=== PATIENT | male | born 1985 | race American Indian/Alaskan Native ===

== ENCOUNTER 2018-03-20 01:22 | Emergency (ER) | payer OTHER ==
[2018-03-20 01:29] VITALS: BP 126/78
[2018-03-20 02:27] LABS: Bilirubin,Urine NEG (Negative); Blood,Urine NEG (Negative); Color,Urine Yellow (Yellow); Mucus,Urine FEW /HPF; Protein,Urine <15 mg/dL mg/dL (Negative); Urobilinogen,Urine < 2.0 mg/dL (<2.0)
[2018-03-20 02:29] LABS: RBC,Urine < 1.0 /HPF (0.0-6.0)
--- NOTE | 2018-03-20 03:20 | Ultrasound Report ---
FINAL REPORT PROCEDURE: US TESTICULAR DOPPLER COMP TECHNIQUE: Real-time talamantes-scale and color flow Doppler sonography in multiple planes of the scrotum, testicles, and epididymes was performed. Velocity spectral waveform analysis Doppler imaging of the arterial inflow and venous outflow of the testicles was performed with image documentation. CPT 34262 and [address]58 HISTORY: left groin and testicle pain COMPARISON: No prior studies are available for comparison. FINDINGS: RIGHT TESTICLE: Size: 4.8 x 2.3 x 3.1 cm . Appearance: Normal size and echotexture . Arterial blood flow: Normal spectral waveforms, flow velocities and color flow images.. Venous blood flow: Normal spectral waveforms and color flow images. Right epididymis: Normal size and echotexture . Hydrocele: None . LEFT TESTICLE Size: 4.5 x 1.7 x 3 cm . Appearance: Normal size and echotexture . Arterial blood flow: Normal spectral waveforms, flow velocities and color flow images.. Venous blood flow: Normal spectral waveforms and color flow images. Leftepididymis: Normal size and echotexture . Hydrocele: None . There is some slight increased echogenicity in the lateral aspect of the scrotal sac. This may represent small area of inflammatory change. No fluid collection is seen. IMPRESSION: Both testicles have a normal size with appropriate blood flow. There is slight increased echogenicity in the lateral aspect of the scrotal sac which may represent a small area of inflammatory change. No fluid collection is identified.
[2018-03-20 03:30] LABS: Red Blood Count 4.32 M/mm3 (3.65-5.03)
[2018-03-20 03:31] LABS: Basophils % (Auto) 0.3 % (0.0-1.8); Eosinophils # (Auto) 0.4 K/mm3 (0.0-0.4); Hematocrit 40.5 % (35.5-45.6); Hemoglobin 13.6 gm/dl (11.8-15.2); Lymphocytes # (Auto) 2.8 K/mm3 (1.2-5.4); Lymphocytes % (Auto) 38.2 % (13.4-35.0); Mean Corpuscular HGB Conc 34 % (32-34); Mean Corpuscular Hemoglobin 32 pg (28-32); Mean Corpuscular Volume 94 fl (84-94); Monocytes # (Auto) 0.5 K/mm3 (0.0-0.8); Monocytes % (Auto) 7.3 % (0.0-7.3); Platelet Count 187 K/mm3 (140-440); Red Cell Distribution Width 14.2 % (13.2-15.2)
[2018-03-20 03:35] LABS: BUN/Creatinine Ratio 19; Blood Urea Nitrogen 19 mg/dL (9-20); Calcium 9.2 mg/dL (8.4-10.2); Hemolysis Index 36
[2018-03-20] MEDS ORDERED: MOTRIN ONE (05:34)
[2018-03-20] MEDS ORDERED: MOTRIN PO ONE (05:35)
[2018-03-20] MEDS ORDERED: ROCEPHIN IM ONE (05:44)
[2018-03-20] MEDS ORDERED: ZITHROMAX PO ONE (05:44)
[2018-03-20] MEDS ORDERED: XYLOCAINE 1% MPF 5 mL INFILTRATI ONE (05:44)
--- NOTE | 2018-03-20 05:45 | Emergency Department Report ---
ED Male HPI - General Chief complaint: Urogenital-Male Stated complaint: GROIN PAIN AND SWELLING Time Seen by Provider: 03/20/18 05:38 Source: patient Mode of arrival: Ambulatory Limitations: No Limitations - History of Present Illness Initial comments: 32-year-old -Martiniquais male comes in complaining of left testicular pain and swelling with left groin area pain. Patient reports that this started on Tuesday about 1700. Patient denies any dysuria no penile discharge he reports is sexually active. Women 2 partners and unprotected. Patient has taken no pain medication. Has a past medical history of allergies he was taken Rain. Has no known drug allergies. Denies any fever chills or nausea or vomiting. MD Complaint: testicle pain, testicle swelling, groin pain -: days(s) (1) Location: left testicle, left inguinal region Radiation: none Severity scale (0 -10): 10 Quality: aching, stabbing Consistency: constant Improves with: none Worsens with: palpation, movement denies other symptoms, swelling (testicle). denies: discharge, urinary retention, blood in urine, dysuria - Related Data Sexually active: Yes (to partner unprotected last 6 months) Previous Rx's Medication Instructions Recorded Last Taken Type Ibuprofen [Motrin 800 MG tab] 800 mg PO Q8HR PRN #30 tablet 03/20/18 Unknown Rx traMADol [Ultram 50 MG tab] 50 mg PO Q6HR PRN #15 tablet 03/20/18 Unknown Rx Allergies Allergy/AdvReac Type Severity Reaction Status Date / Time No Known Allergies Allergy Verified 03/20/18 05:39 ED Review of Systems ROS: Stated complaint: GROIN PAIN AND SWELLING Other details as noted in HPI Constitutional: denies: chills, fever Eyes: denies: eye pain, eye discharge, vision change ENT: denies: ear pain, throat pain Respiratory: denies: cough, shortness of breath, wheezing Cardiovascular: denies: chest pain, palpitations Endocrine: no symptoms reported Gastrointestinal: denies: abdominal pain, nausea, diarrhea Genitourinary: testicular pain, other (testicular swelling) Musculoskeletal: denies: back pain, joint swelling, arthralgia Skin: denies: rash, lesions Neurological: denies: headache, weakness, paresthesias Psychiatric: denies: anxiety, depression Hematological/Lymphatic: denies: easy bleeding, easy bruising ED Past Medical Hx - Past Medical History Previous Medical History?: No - Surgical History Past Surgical History?: Yes - Social History Smoking Status: Current Some Day Smoker Substance Use Type: None - Medications Home Medications: Home Medications Medication Instructions Recorded Confirmed Last Taken Type Ibuprofen [Motrin 800 MG tab] 800 mg PO Q8HR PRN #30 tablet 03/20/18 Unknown Rx traMADol [Ultram 50 MG tab] 50 mg PO Q6HR PRN #15 tablet 03/20/18 Unknown Rx ED Physical Exam - General Limitations: No Limitations General appearance: alert, in no apparent distress - Head Head exam: Present: atraumatic, normocephalic - Eye Eye exam: Present: normal appearance - ENT ENT exam: Present: mucous membranes moist - Neck Neck exam: Present: normal inspection - Respiratory Respiratory exam: Present: normal lung sounds bilaterally. Absent: respiratory distress - Cardiovascular Cardiovascular Exam: Present: regular rate, normal rhythm. Absent: systolic murmur, diastolic murmur, rubs, gallop - exam: Present: testicular tenderness (left testicle), scrotal swelling ( testicle), circumcision. Absent: urethral discharge - Extremities Exam Extremities exam: Present: normal inspection - Back Exam Back exam: Present: normal inspection - Neurological Exam Neurological exam: Present: alert, oriented X3 - Psychiatric Psychiatric exam: Present: normal affect, normal mood - Skin Skin exam: Present: warm, dry, intact, normal color. Absent: rash ED Course Vital Signs 03/20/18 03/20/18 01:22 01:38 Temperature 98.3 F 98.3 F Pulse Rate 93 H 93 H Respiratory 20 18 Rate Blood Pressure 126/78 126/78 O2 Sat by Pulse 96 96 Oximetry ED Medical Decision Making - Lab Data Result diagrams: 03/20/18 03:03 03/20/18 03:03 - Radiology Data Radiology results: report reviewed, image reviewed HISTORY: left groin and testicle pain COMPARISON: No prior studies are available for comparison. FINDINGS: RIGHT TESTICLE: Size: 4.8 x 2.3 x 3.1 cm . Appearance: Normal size and echotexture . Arterial blood flow: Normal spectral waveforms, flow velocities and color flow images.. Venous blood flow: Normal spectral waveforms and color flow images. Right epididymis: Normal size and echotexture . Hydrocele: None . LEFT TESTICLE Size: 4.5 x 1.7 x 3 cm . Appearance: Normal size and echotexture . Arterial blood flow: Normal spectral waveforms, flow velocities and color flow images.. Venous blood flow: Normal spectral waveforms and color flow images. Leftepididymis: Normal size and echotexture . Hydrocele: None . There is some slight increased echogenicity in the lateral aspect of the scrotal sac. This may represent small area of inflammatory change. No fluid collection is seen. IMPRESSION: Both testicles have a normal size with appropriate blood flow. There is slight increased echogenicity in the lateral aspect of the scrotal sac which may represent a small area of inflammatory change. No fluid collection is identified. Transcribed By: [facility] Dictated By: ADDISON DERAS MD Electronically Authenticated By: ADDISON DERAS MD Signed Date/Time: 03/20/18314 DD/ 4 TD/TT: 03/20/18314 - Medical Decision Making Patient has been evaluated by this provider fast track. Review of ultrasound shows no testicular torsion. Does show some inflammatory of the left testicular with echogenic changes. Discussed the patient will treat him for epididymitis is under the age of 35. Treatment consisted of Rocephin 250 mg IM [place] azithromycin 1 g by mouth. We will order chlamydia and gonorrhea studies. Place patient in ibuprofen for discharge we will give patient ibuprofen 800 mg one his stay. Discussed the patient to wear underwear that are tight fit in to help bring up the testicles. Discussed the patient is symptoms persist or gets worse he needs to follow up with urologist. Patient verbalized understanding. Critical care attestation.: If time is entered above; I have spent that time in minutes in the direct care of this critically ill patient, excluding procedure time. ED Disposition Clinical Impression: Epididymitis Disposition: DC-01 TO HOME OR SELFCARE Is pt being admited?: No Does the pt Need Aspirin: No Condition: Stable Instructions: Epididymitis (ED) Additional Instructions: Please take ibuprofen and trauma and all for pain. Recommend wearing either a scrotal support underwear that is tight. If symptoms persist or gets worse please follow-up with the urologist or your primary care provider. Prescriptions: Ibuprofen [Motrin 800 MG tab] 800 mg PO Q8HR PRN #30 tablet PRN Reason: Pain traMADol [Ultram 50 MG tab] 50 mg PO Q6HR PRN #15 tablet PRN Reason: Pain Referrals: PRIMARY CARE, [Primary Care Provider] - 3-5 Days JEANETTE HERNANDEZ MD [Staff Physician] - 3-5 Days RM SPRING MD [Staff Physician] - 3-5 Days Forms: STI Treatment and Prevention, Work/School Release Form(ED)
[2018-03-20] MEDS ORDERED: BENADRYL ONE (06:22)
[2018-03-20] MEDS ORDERED: BENADRYL IM ONE (06:23)
--- NOTE | 2018-03-20 07:00 | Emergency Department Report ---
Blank Doc - Documentation Documentation: Student Ambassador Dom reports to me that patient has an allergic reaction to either the Rocephin or azithromycin. Patient is breaking out in urticaria rash on abdomen and back. Patient reports that the area is itchy and nonpainful. Patient denies any shortness of breath no chest pain had no difficulty swallowing does not feel like his sister disclosing, no heart racing. Exam: Patient is no acute distress Respiratory: Breath sounds are clear to auscultation no wheezing Cardiac: Regular rate and rhythm no murmurs appreciated Skin: Urticaria rash multiple areas on abdomen and back. Verbal orders to give patient Benadryl 50 mg IM.
== END 2018-03-20 06:47 | disposition home or self-care (01) ==
LOC: ED 01:22
DX: N45.1 Epididymitis (principal); F17.200 Nicotine dependence, unspecified, uncomplicated
CPT/HCPCS: 36415; 80048; 81001; 85025; 93975; 96372; 99284; J0696; J1200